=== PATIENT | female | born 2005 | race African-American/Black ===

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

== ENCOUNTER 2024-10-11 01:05 | Emergency (ER) | payer OTHER ==
[~2024-10-11] VITALS: Ht 165.1 cm; Wt 59.0 kg
[~2024-10-11 01:05] MED LIST: KETO-98 RIGHTEYE
[2024-10-11 01:15] VITALS: TEMP 102.5; O2SAT 98
[2024-10-11] MEDS ORDERED: KETOROLAC 30MG/ML VIAL IM STA (01:19)
[2024-10-11] MEDS ORDERED: ONDANSETRON HCL 4MG/2ML INJ IM ONE (01:30)
[2024-10-11] MEDS: SODIUM CHLORIDE 0.9% 1,000 ML IV ONE (02:38)
[2024-10-11 02:42] LABS: CLARITY URINE CLOUDY (CLEAR); COLOR URINE DARK YELLOW (YELLOW); GLUCOSE URINE NEGATIVE (NEGATIVE); KETONES URINE TRACE (NEGATIVE); LEUKOCYTE ESTERASE URINE 2+ (NEGATIVE); NITRITE URINE POSITIVE (NEGATIVE); OCCULT BLOOD URINE 1+ (NEGATIVE); PH URINE 6.5 (4.5-8.0); PROTEIN URINE 1+ (NEGATIVE); SPECIFIC GRAVITY URINE 1.029 (1.005-1.030); UROBILINOGEN URINE >8.0 E.U./dL (0.2-1.0)
[2024-10-11] MEDS: FAMOTIDINE 20MG TABLET PO ONE (02:45)
[2024-10-11] MEDS: ONDANSETRON HCL 4MG/2ML INJ IV ONE (02:45)
[2024-10-11 02:46] VITALS: BP 106/68; PULSE 112; RESP 16
[2024-10-11] MEDS: KETOROLAC 15MG/ML VIAL IV ONE (02:46)
[2024-10-11 02:49] LABS: BASOPHILS % 0.2 % (0.0-2.0); EOSINOPHILS % 0.2 % (0.0-5.0); HEMATOCRIT. 35.8 % (36.0-48.0); HEMOGLOBIN. 11.7 g/dL (12.0-16.0); LYMPHOCYTES % 15.5 % (20.0-50.0); MEAN CORPUSCULAR HEMOGLOBIN 29.6 pg (28.0-32.0); MEAN CORPUSCULAR HGB CONC 32.8 g/dL (31.0-37.0); MEAN CORPUSCULAR VOLUME 90.4 fL (81.0-99.0); MONOCYTES % 6.2 % (2.0-8.0); NEUTROPHILS % 77.9 % (40.0-76.0); PLATELET 296 x1000/uL (130-400); RED BLOOD CELL COUNT 3.96 mill/uL (4.2-5.4); RED CELL DISTRIBUTION WIDTH 13.3 % (11.6-14.6); WHITE BLOOD COUNT 9.9 x1000/uL (4.5-11.0)
[2024-10-11 02:53] LABS: CHLORIDE 103 mEq/L (98-107); POTASSIUM 3.1 mEq/L (3.5-5.1); SODIUM 138 mEq/L (136-145)
[2024-10-11 02:54] LABS: CALCIUM 9.3 mg/dL (8.7-10.4); CARBON DIOXIDE 27 mEq/L (21-32)
[2024-10-11 02:58] LABS: HCG SCREEN NEGATIVE
[2024-10-11 02:59] LABS: CREATININE 0.7 mg/dL (0.6-1.0); GLUCOSE 97 mg/dL (70-105); UREA NITROGEN BLOOD 7 mg/dL (9-23)
[2024-10-11 03:01] LABS: ALANINE AMINOTRANSFERASE 17 IU/L (10-49); ALBUMIN 4.5 g/dL (3.2-4.8); ASPARTATE AMINOTRANSFERASE 21 IU/L (<34); BILIRUBIN TOTAL 0.8 mg/dL (0.1-1.0); PROTEIN TOTAL 7.7 g/dL (6.0-8.3)
[2024-10-11] MEDS ORDERED: CEPH500C2 MT (03:10)
[2024-10-11] MEDS ORDERED: ACET-2708 MT (03:10)
[2024-10-11 04:15] LABS: SQUAMOUS EPITHELIAL CELL URINE 2+ /lpf (RARE/1+)
[2024-10-11 04:16] LABS: MUCUS URINE 2+ /lpf (< = 2+)
[2024-10-11 04:17] LABS: WBC URINE 15-25 /hpf (0-2)
[2024-10-11 04:18] LABS: BACTERIA URINE 2+
[2024-10-11] MEDS: CEFTRIAXONE 1GM/50ML 50 ML IV ONE (04:26)
[2024-10-11] MEDS: POTASSIUM CHLORIDE 20MEQ/PACKET PO ONE (04:26)
== END 2024-10-11 14:41 | disposition home or self-care (01) ==
LOC: ER 01:05
DX: R10.33 Periumbilical pain (principal); N39.0 Urinary tract infection, site not specified; E87.6 Hypokalemia
CPT/HCPCS: 99285; 74176; 96365; 76830; 76856; 96375; 96361; 80053; 81003; 81025; 84703; 83690; 85025; 87086; 87186; 87077; 36415; J0696; J1885; J2405; J7030